=== PATIENT | female | born 1995 | race Caucasian/White ===

== ENCOUNTER 2023-03-14 03:25 | Emergency (ER) | payer MEDICAID ==
[2023-03-14] MEDS: Acetaminophen 325 MG Tab PO ONE (04:04)
[2023-03-14] MEDS: Acetaminophen 500 MG Tab PO ONE (04:06)
[2023-03-14] MEDS: traMADol 50 MG Tab PO ONE (04:12)
[2023-03-14] MEDS: Amoxicillin/Clavulanate K 875-125 MG Tab PO ONE (04:46)
== END 2023-03-14 04:51 | disposition home or self-care (01) ==
LOC: FB.ED 03:25
DX: K08.89 Other specified disorders of teeth and supporting structures (principal); K04.7 Periapical abscess without sinus; F17.210 Nicotine dependence, cigarettes, uncomplicated
CPT/HCPCS: 99283; A9270-GY